=== PATIENT | male | born 1985 | race Caucasian/White ===

== ENCOUNTER 2024-08-20 20:37 | Emergency (ER) | payer OTHER ==
[~2024-08-20] VITALS: Ht 165.1 cm; Wt 79.5 kg
[2024-08-20 20:44] VITALS: O2SAT 97
[2024-08-20] MEDS: ONDANSETRON HCL 4MG/2ML INJ IM ONE (21:52)
[2024-08-20] MEDS: KETOROLAC 30MG/ML VIAL IM ONE (21:52)
[2024-08-20 23:03] LABS: BASOPHILS % 1.2 % (0.0-2.0); EOSINOPHILS % 6.6 % (0.0-5.0); HEMATOCRIT. 45.5 % (42.0-52.0); HEMOGLOBIN. 15.4 g/dL (14.0-18.0); LYMPHOCYTES % 30.4 % (20.0-50.0); MEAN CORPUSCULAR HEMOGLOBIN 29.3 pg (28.0-32.0); MEAN CORPUSCULAR HGB CONC 33.7 g/dL (31.0-37.0); MEAN PLATELET VOLUME 8.5 fl (7.4-10.4); MONOCYTES % 12.5 % (2.0-8.0); NEUTROPHILS % 49.3 % (40.0-76.0); PLATELET 289 x1000/uL (130-400); RED BLOOD CELL COUNT 5.24 mill/uL (4.7-6.1); RED CELL DISTRIBUTION WIDTH 12.7 % (11.6-14.6); WHITE BLOOD COUNT 9.6 x1000/uL (4.5-11.0)
[2024-08-20 23:08] LABS: CHLORIDE 103 mEq/L (98-107); POTASSIUM 4.1 mEq/L (3.5-5.1); SODIUM 136 mEq/L (136-145)
[2024-08-20 23:09] LABS: CARBON DIOXIDE 27 mEq/L (21-32)
[2024-08-20 23:14] LABS: CREATININE 0.8 mg/dL (0.6-1.3); GLUCOSE 111 mg/dL (70-105); UREA NITROGEN BLOOD 7 mg/dL (9-23)
[2024-08-20 23:16] LABS: ALANINE AMINOTRANSFERASE 16 IU/L (10-49); ALBUMIN 4.6 g/dL (3.2-4.8); ASPARTATE AMINOTRANSFERASE 18 IU/L (<34); BILIRUBIN DIRECT 0.2 mg/dL (<=3.0); BILIRUBIN TOTAL 0.6 mg/dL (0.1-1.0); PROTEIN TOTAL 7.5 g/dL (6.0-8.3)
[2024-08-20 23:26] LABS: CLARITY URINE CLEAR (CLEAR); COLOR URINE YELLOW (YELLOW); GLUCOSE URINE NEGATIVE (NEGATIVE); KETONES URINE NEGATIVE (NEGATIVE); LEUKOCYTE ESTERASE URINE NEGATIVE (NEGATIVE); NITRITE URINE NEGATIVE (NEGATIVE); OCCULT BLOOD URINE NEGATIVE (NEGATIVE); PROTEIN URINE NEGATIVE (NEGATIVE); SPECIFIC GRAVITY URINE 1.011 (1.005-1.030); UROBILINOGEN URINE 0.2 E.U./dL (0.2-1.0)
[2024-08-21] MEDS ORDERED: POLY17PO3 MT (00:09)
[2024-08-21] MEDS ORDERED: NA P133E4 RC (00:09)
[2024-08-21] MEDS ORDERED: DOCU-138 MT (00:09)
[2024-08-21] MEDS ORDERED: ALBU18HF2 IH (00:10)
[2024-08-21] MEDS: DOCUSATE SODIUM 100MG CAPSULE PO ONE (01:42)
[2024-08-21] MEDS: POLYETHYLENE GLYCOL 3350 (17GM) 1 DOSE PACK PO ONE (01:42)
[2024-08-21] MEDS: DOCUSATE SODIUM 100MG CAPSULE PO NR (01:47)
[2024-08-21 02:43] VITALS: BP 108/66; PULSE 65; RESP 18; TEMP 36.72516; O2SAT 100
== END 2024-08-21 02:45 | disposition home or self-care (01) ==
LOC: ER 20:37
DX: K59.00 Constipation, unspecified (principal); J45.909 Unspecified asthma, uncomplicated; Z79.899 Other long term (current) drug therapy
CPT/HCPCS: 99285; 74176; 80076; 80048; 81003; 83690; 85025; 36415; 96372; J1885; J2405

== ENCOUNTER 2024-09-27 19:14 | Emergency (ER) | payer MEDICARE, OTHER ==
[~2024-09-27] VITALS: Ht 165.1 cm; Wt 75.0 kg
[~2024-09-27 19:14] MED LIST: ALBU18HF2 IH; DOCU-138 MT; NA P133E4 RC; POLY17PO3 MT
[2024-09-27 19:21] VITALS: O2SAT 100
[2024-09-27] MEDS: ACETAMINOPHEN 325MG TABLET PO STA (20:30)
[2024-09-27 22:47] LABS: BASOPHILS % 1.4 % (0.0-2.0); HEMATOCRIT. 45.4 % (42.0-52.0); HEMOGLOBIN. 15.2 g/dL (14.0-18.0); LYMPHOCYTES % 27.8 % (20.0-50.0); MEAN CORPUSCULAR HGB CONC 33.5 g/dL (31.0-37.0); MEAN CORPUSCULAR VOLUME 86.7 fL (80.0-94.0); MEAN PLATELET VOLUME 7.8 fl (7.4-10.4); MONOCYTES % 7.1 % (2.0-8.0); NEUTROPHILS % 59.7 % (40.0-76.0); PLATELET 339 x1000/uL (130-400); RED BLOOD CELL COUNT 5.23 mill/uL (4.7-6.1); WHITE BLOOD COUNT 9.3 x1000/uL (4.5-11.0)
[2024-09-27 22:54] LABS: CHLORIDE 104 mEq/L (98-107); SODIUM 139 mEq/L (136-145)
[2024-09-27 22:55] LABS: CALCIUM 9.8 mg/dL (8.7-10.4); CARBON DIOXIDE 28 mEq/L (21-32); D-DIMER 0.4 mg/L FEU (<0.50); INR 0.9; PROTHROMBIN TIME 10.3 sec (9.6-11.0)
[2024-09-27 23:00] LABS: CREATININE 0.8 mg/dL (0.6-1.3); GLUCOSE 107 mg/dL (70-105); UREA NITROGEN BLOOD 12 mg/dL (9-23)
[2024-09-27 23:11] LABS: TROPONIN I HIGH SENSITIVITY < 4 ng/L (3.0-53)
[2024-09-28 01:06] LABS: TROPONIN I HIGH SENSITIVITY < 4 ng/L (3.0-53)
[2024-09-28 03:45] VITALS: BP 132/74; PULSE 92; RESP 18; TEMP 36.78072; O2SAT 100
== END 2024-09-28 08:07 | disposition left against medical advice (07) ==
LOC: ER 19:14
DX: S09.90XA Unspecified injury of head, initial encounter (principal); R07.9 Chest pain, unspecified; F41.9 Anxiety disorder, unspecified; J45.909 Unspecified asthma, uncomplicated; Z79.899 Other long term (current) drug therapy; X58.XXXA Exposure to other specified factors, initial encounter; Y93.89 Activity, other specified; Y92.89 Other specified places as the place of occurrence of the external cause; Y99.8 Other external cause status
CPT/HCPCS: 36415; 71045; 80048; 83880; 84484; 85025; 85379; 93005; 93971; 99285